=== PATIENT | female | born 1955 | race Caucasian/White ===

== ENCOUNTER 2018-05-16 13:54 | Outpatient (CLI) | payer MEDICARE, BC | END 2018-05-16 13:55 | disposition home or self-care (01) | LOC: BICMAMMO 13:54 | PROVIDERS: ATTEND Family Medicine | DX: Z12.31 Encounter for screening mammogram for malignant neoplasm of breast (principal); N64.89 Other specified disorders of breast; Z80.3 Family history of malignant neoplasm of breast | CPT/HCPCS: 77063; 77067 ==

== ENCOUNTER 2018-06-04 09:14 | Outpatient (CLI) | payer MEDICARE, BC | END 2018-06-04 09:15 | disposition home or self-care (01) | LOC: BICMAMMO 09:14 | PROVIDERS: ATTEND Family Medicine | DX: R92.2 Inconclusive mammogram (principal); Z80.3 Family history of malignant neoplasm of breast | CPT/HCPCS: 77065; G0279 ==

== ENCOUNTER 2018-10-29 12:13 | Day surgery (SDC) | payer MEDICARE, BC ==
[2018-10-28 11:30] VITALS: BMI 30.7
[2018-10-29] MEDS ORDERED: Lidocaine 1% PF 5 ML VIAL ONE (13:01)
[2018-10-29] MEDS ORDERED: Sodium Bicarbonate 2.5 MEQ/5 ML VIAL ONE (13:01)
[2018-10-29 14:24] VITALS: BP 139/71; TEMP 98.1
--- NOTE | 2018-10-29 15:15 | ULT ---
EXAM: US Thyroid Needle Bx PROVIDED CLINICAL HISTORY: Bilateral thyroid nodules with more dominant nodule left lobe of the thyroid gland. Biopsy was reques nadir COMPARISON: Outside images obtained from [facility]. TECHNIQUE: After informed consent was obtained, patient was placed on the sonography table in the supine positio n. Limited sonographic evaluation of the thyroid gland was performed. Heterogeneous nodule in the inferior left lobe of the thyroid gland seen on prior imaging was localized. This area was meticulous ly prepped and draped in usual sterile fashion. Skin and subcutaneous tissues were infiltrated with buffered 1% lidocaine for local anesthesia. Utilizing concurrent real time ultrasound guidance, a tot al of four 25-gauge fine-needle aspiration specimens were obtained. Post procedure thyroid ultrasound demonstrates no fluid or hematoma adjacent to the left lobe of the thyroid gland. The patient tolerated the procedure well and without immediate complication. Dry sterile dressing was placed at puncture site. On ice pack was placed over site of puncture as well. Patient was transported to radiology nurses holding area and briefly monitored prior to discharge without complic ation. IMPRESSION: 1. Technically successful ultrasound-guided fine-needle aspiration of a heterogeneous nodule left lob e of the thyroid gland. 2. Continued follow-up evaluation of the nodule in the right lobe of thyroid gland is recommended.
== END 2018-10-29 14:00 | disposition home or self-care (01) ==
LOC: ULT 12:13
PROVIDERS: ATTEND Physician Assistant
DX: E04.1 Nontoxic single thyroid nodule (principal); K21.9 Gastro-esophageal reflux disease without esophagitis; E78.00 Pure hypercholesterolemia, unspecified; I95.9 Hypotension, unspecified; Z88.2 Allergy status to sulfonamides; Z79.82 Long term (current) use of aspirin; Z79.899 Other long term (current) drug therapy
CPT/HCPCS: 60100; 76942; 88173; J2001

== ENCOUNTER 2018-11-07 09:06 | Outpatient (CLI) | payer MEDICARE, BC ==
--- NOTE | 2018-11-07 10:03 | ULT ---
Gallbladder ultrasound: Multiple grayscale images of right upper quadrant obtained according to protocol. INDICATION: Pain FINDINGS: Liver: Scattered hepatic cysts are present. In addition there is a focus of decreased, echogenicity, 1.4 cm, nonspecific, within hepatic parenchyma. Increased parenchymal echogenicity is present, which can be seen with fatty infiltration. Gallbladder: There are areas of gallbladder wall thickening, 4 to 6 mm in thickness. No shadowing cho lelithiasis. Darby sign is reported as negative Common bile duct is normal in caliber, 4-5 mm. Ascites: None IMPRESSION: Indeterminate 1.4 cm hypoechoic focus of the hepatic parenchyma. Recommend follow-up hepatic mass pro tocol CT examination with and without contrast to further characterize. Gallbladder wall thickening, without cholelithiasis. Hepatic steatosis.
== END 2018-11-07 09:07 | disposition home or self-care (01) ==
LOC: BICULT 09:06
PROVIDERS: ATTEND Internal Medicine Gastroenterology
DX: R10.13 Epigastric pain (principal); K76.0 Fatty (change of) liver, not elsewhere classified; K82.8 Other specified diseases of gallbladder
CPT/HCPCS: 76705

== ENCOUNTER 2018-11-21 09:07 | Outpatient (CLI) | payer MEDICARE, BC ==
--- NOTE | 2018-11-21 11:49 | CT ---
CLINICAL HISTORY: Liver lesion seen on recent ultrasound. TECHNIQUE: Multiple contiguous axial images were obtained and a CT of the abdomen without and with IV contrast. Postcontrast images were obtained in the arterial and portal venous phases. Oral contrast was administered. Coronal reformats were performed. COMPARISON: Gallbladder ultrasound 11/07/2018 FINDINGS: Liver: Size: Normal. Contour: Smooth. Mass: Multiple nonenhancing cysts are seen measuring up to 1.9 cm in size. No enhancing mass is seen in the liver. Gallbladder and biliary system: Normal. No CT evident gallstones. No biliary ductal dilatation. Spleen: Normal. Pancreas: Normal. Kidneys: Normal. Adrenal glands: Normal. GI tract: Normal. Abdominal aorta and its major branches: Atherosclerotic calcifications No aneurysm. Peritoneum/retroperitoneum: Normal. No ascites. No adenopathy. Body wall and musculoskeletal: Normal. Visualized lower thorax: Normal. No pulmonary parenchymal mass or pleural effusion. IMPRESSION: Multiple hepatic cysts without solid liver mass identified
== END 2018-11-21 09:08 | disposition home or self-care (01) ==
LOC: BICCT 09:07
PROVIDERS: ATTEND Internal Medicine Gastroenterology
DX: K76.89 Other specified diseases of liver (principal)
CPT/HCPCS: 36415; 74170; 80053; 85025

== ENCOUNTER 2019-06-04 10:54 | Outpatient (CLI) | payer MEDICARE, BC ==
--- NOTE | 2019-06-04 11:38 | BD ---
DEXA BONE DENSITY SCAN: DATE: 06/04/2019. COMPARISON: 12/31/2014. HISTORY: Postmenopausal female undergoing screening for osteoporosis. FINDINGS: Lumbar Spine: BMD (g/cm2) L1 1.060 T-Score: 0.6 Previous: 0.1 L2 1.201 T-Score: 1.6 Previous: 1.3 L3 1.228 T-Score: 1.3 Previous: 1.6 L4 1.347 T-Score: 2.6 Previous: 1.5 L1-L4 1.227 T-Score: 1.6 Previous: 1.2 Femoral Neck: 0.569 T-Score: -2.5 Previous: -2.5 Total Femur: 0.962 T-Score: 0.2 Previous: -1.1 The FRAX-WHO fracture risk assessment tool was not reported as some T-scores are at or below -2.5. IMPRESSION: Normal lumbar spine bone mineral density. Osteoporosis noted within the femoral neck, correlating wit h a high risk for fracture. Transcribed Date/Time: 06/04/2019 12:01 PM
--- NOTE | 2019-06-04 13:24 | MMO ---
Bilateral MAMMO Bilat Screen [facility]. CLINICAL HISTORY: Patient is 64 years old and is seen for screening. The patient has no family history of breast cancer. The patient has no personal history of cancer. VIEWS: The views performed were: bilateral craniocaudal with tomosynthesis and bilateral mediolateral oblique with tomosynthesis. FILMS COMPARED: The present examination has been compared to prior imaging studies performed at [facility] on 12/15/2015, 04/12/2017, 05/16/2018 and 06/04/2018. This study has been interpreted with the assistance of computer-aided detection. MAMMOGRAM FINDINGS: There are scattered fibroglandular densities. There are no suspicious masses, suspicious calcifications, or new areas of architectural distortion. IMPRESSION: THERE IS NO MAMMOGRAPHIC EVIDENCE OF MALIGNANCY. A ROUTINE FOLLOW-UP MAMMOGRAM IN 1 YEAR IS RECOMMENDED. THE RESULTS OF THIS EXAM WERE SENT TO THE PATIENT. ACR BI-RADS Category 1 - Negative MAMMOGRAPHY NOTE: 1. A negative mammogram report should not delay a biopsy if a dominant of clinically suspicious mass is present. 2. Approximately 10% to 15% of breast cancers are not detected by mammography. 3. Adenosis and dense breasts may obscure an underlying neoplasm. Reported by: POPEYE GRIMES MD Electonically Signed: [id number]
== END 2019-06-04 10:55 | disposition home or self-care (01) ==
LOC: BICMAMMO 10:54
PROVIDERS: ATTEND Family Medicine
DX: Z12.31 Encounter for screening mammogram for malignant neoplasm of breast (principal); Z13.820 Encounter for screening for osteoporosis; Z78.0 Asymptomatic menopausal state; M81.0 Age-related osteoporosis without current pathological fracture
CPT/HCPCS: 77063; 77067; 77080

== ENCOUNTER 2020-07-04 12:44 | Outpatient (CLI) | payer MEDICARE, BC ==
--- NOTE | 2020-07-04 13:20 | MMO ---
Bilateral MAMMO Bilat Screen [facility]. CLINICAL HISTORY: Patient is 65 years old and is seen for screening. The patient has no family history of breast cancer. The patient has no personal history of cancer. VIEWS: The views performed were: bilateral craniocaudal with tomosynthesis and bilateral mediolateral oblique with tomosynthesis. FILMS COMPARED: The present examination has been compared to prior imaging studies performed at [facility] on 04/12/2017, 05/16/2018, 06/04/2018 and 06/04/2019. This study has been interpreted with the assistance of computer-aided detection. MAMMOGRAM FINDINGS: There are scattered fibroglandular densities. Finding 1: There are stable benign appearing calcifications seen in both breasts. Finding 2: There are stable benign appearing densities seen in both breasts. There are no suspicious masses, suspicious calcifications, or new areas of architectural distortion. IMPRESSION: THERE IS NO MAMMOGRAPHIC EVIDENCE OF MALIGNANCY. A ROUTINE FOLLOW-UP MAMMOGRAM IN 1 YEAR IS RECOMMENDED. THE RESULTS OF THIS EXAM WERE SENT TO THE PATIENT. ACR BI-RADS Category 2 - Benign finding MAMMOGRAPHY NOTE: 1. A negative mammogram report should not delay a biopsy if a dominant of clinically suspicious mass is present. 2. Approximately 10% to 15% of breast cancers are not detected by mammography. 3. Adenosis and dense breasts may obscure an underlying neoplasm. Reported by: XIN OSMAN MD Electonically Signed: [id number]
== END 2020-07-04 12:45 | disposition home or self-care (01) ==
LOC: BICULT 12:44
PROVIDERS: ATTEND Family Medicine
DX: Z12.31 Encounter for screening mammogram for malignant neoplasm of breast (principal)
CPT/HCPCS: 77063; 77067

== ENCOUNTER 2021-07-10 10:16 | Outpatient (CLI) | payer MEDICARE, BC | END 2021-07-10 10:17 | disposition home or self-care (01) | LOC: BICMAMMO 10:16 | PROVIDERS: ATTEND Family Medicine | DX: Z12.31 Encounter for screening mammogram for malignant neoplasm of breast (principal); Z13.820 Encounter for screening for osteoporosis; N95.9 Unspecified menopausal and perimenopausal disorder; M85.851 Other specified disorders of bone density and structure, right thigh; M85.852 Other specified disorders of bone density and structure, left thigh | CPT/HCPCS: 77063; 77067; 77080 ==